=== PATIENT | male | born 2000 | race Caucasian/White ===

== ENCOUNTER 2021-02-14 23:47 | Emergency (ER) | payer MEDICAID, OTHER ==
[~2021-02-14] VITALS: Ht 177.8 cm; Wt 113.3 kg
[2021-02-15] MEDS ORDERED: KETOROLAC 30 MG/ML VIAL ONE (00:27)
[2021-02-15] MEDS ORDERED: LACTATED RINGERS 1,000 ML IV ONE (00:27)
[2021-02-15] MEDS ORDERED: LACTATED RINGERS 1,000 ML IV STA (00:27)
[2021-02-15] MEDS ORDERED: KETOROLAC 30 MG/ML VIAL IVP STA (00:27)
--- NOTE | 2021-02-15 00:36 | ED General ---
General Chief Complaint: Cough/Cold/Flu Symptoms Stated Complaint: SOA/DIARRHEA/CHEST PAIN Source of Information: Patient Exam Limitations: No Limitations History of Present Illness Date Seen by Provider: Feb 15, 2021 Time Seen by Provider: 00:15 Initial Comments Patient checked in wanting her Covid test with results I will and also complains of chest pain, diarrhea, headache and fatigue. He found out that he could not get results for rapid test here as that was not available and held off on completing check-in until he made a phone call. He states he is good to be to work at 5 AM. Ultimately decided to go ahead and finish check in due to the other complaints. States that he was exposed to a person with Covid 19 on , 02/10/2021 at work. He started developing symptoms of fatigue and headache on 02/12/2021 and then tonight has progressed to diarrhea, fatigue, headache, fevers and now left-sided chest pain. The chest pain he states is electrical feeling that has been going on for an hour or 2. States it is worse with air blowing on his face. Otherwise no exacerbating or relieving factors. He has had 1 dose of his Covid vaccine on 01/11/2021 with [employer] dosing. He is here working on the [facility] site and he is from [place]. Has no local physician. Denies loss of taste and smell. Timing/Duration: 2-3 Days Severity: Moderate Associated Systoms: Chest Pain; No Cough; Headaches, Malaise; No Nausea/Vomiting, No Shortness of Air Allergies and Home Medications Allergies Coded Allergies: No Known Drug Allergies (Unverified , 02/15/21) Patient Home Medication List Home Medication List Reviewed: Yes Review of Systems Review of Systems Constitutional: No chills; fever, malaise EENTM: nose congestion; No throat pain Respiratory: No cough, No short of breath Cardiovascular: chest pain; No edema, No palpitations Gastrointestinal: diarrhea; No nausea, No vomiting Genitourinary: no symptoms reported Musculoskeletal: No back pain; muscle pain Skin: no symptoms reported Psychiatric/Neurological: No Symptoms Reported All Other Systems Reviewed Negative Unless Noted: Yes Past [id number] Hx Patient Social History Tobacco Use?: No Substance use?: No Alcohol Use?: No Past Medical History Surgeries: Yes Orthopedic Respiratory: No Cardiac: No Neurological: No Genitourinary: No Gastrointestinal: No Physical Exam Vital Signs Vital Signs - First Documented 02/15/21 00:15 Temp 36.6 Pulse 89 Resp 14 B/P (MAP) 138/64 (88) Pulse Ox 97 O2 Delivery Room Air Capillary Refill : Height, Weight, BMI Height: '" Weight: lbs. oz. kg; BMI Method: General Appearance: No Apparent Distress, WD/WN HEENT: PERRL/EOMI, Pharynx Normal Neck: Non Tender, Supple Respiratory: Lungs Clear, Normal Breath Sounds Cardiovascular: Regular Rate, Rhythm, No Murmur Gastrointestinal: Non Tender, Soft Back: Normal Inspection, No CVA Tenderness, No Vertebral Tenderness Extremity: Normal Range of Motion, Non Tender, No Calf Tenderness, No Pedal Edema Neurologic/Psychiatric: Alert, Oriented x3, Normal Mood/Affect Skin: Normal Color, Warm/Dry Progress/Results/Core Measures Suspected Sepsis SIRS Temperature: Pulse: Respiratory Rate: Laboratory Tests 02/15/21 00:33: White Blood Count 11.1H Blood Pressure / Mean: Laboratory Tests 02/15/21 00:33: Creatinine 0.86, Platelet Count 296, Total Bilirubin 0.7 Results/Orders Lab Results Laboratory Tests Test 02/15/21 00:33 02/15/21 00:50 Range/Units White Blood Count 11.1 H 4.3-11.0 10^3/uL Red Blood Count 5.15 4.30-5.52 10^6/uL Hemoglobin 14.7 13.3-17.7 g/dL Hematocrit 42 40-54 % Mean Corpuscular Volume 82 80-99 fL Mean Corpuscular Hemoglobin 29 25-34 pg Mean Corpuscular Hemoglobin Concent 35 32-36 g/dL Red Cell Distribution Width 12.1 10.0-14.5 % Platelet Count 296 130-400 10^3/uL Mean Platelet Volume 11.0 9.0-12.2 fL Immature Granulocyte % (Auto) 1 % Neutrophils (%) (Auto) 60 42-75 % Lymphocytes (%) (Auto) 29 12-44 % Monocytes (%) (Auto) 6 0-12 % Eosinophils (%) (Auto) 3 0-10 % Basophils (%) (Auto) 0 0-10 % Neutrophils # (Auto) 6.7 1.8-7.8 X 10^3 Lymphocytes # (Auto) 3.3 1.0-4.0 X 10^3 Monocytes # (Auto) 0.7 0.0-1.0 X 10^3 Eosinophils # (Auto) 0.3 0.0-0.3 10^3/uL Basophils # (Auto) 0.0 0.0-0.1 10^3/uL Immature Granulocyte # (Auto) 0.1 0.0-0.1 10^3/uL Sodium Level 140 135-145 MMOL/L Potassium Level 4.2 3.6-5.0 MMOL/L Chloride Level 103 98-107 MMOL/L Carbon Dioxide Level 26 21-32 MMOL/L Anion Gap 11 5-14 MMOL/L Blood Urea Nitrogen 18 7-18 MG/DL Creatinine 0.86 0.60-1.30 MG/DL Estimat Glomerular Filtration Rate 113 BUN/Creatinine Ratio 21 Glucose Level 138 H 70-105 MG/DL Calcium Level 9.6 8.5-10.1 MG/DL Corrected Calcium 9.3 8.5-10.1 MG/DL Total Bilirubin 0.7 0.1-1.0 MG/DL Aspartate Amino Transf (AST/SGOT) 25 5-34 U/L Alanine Aminotransferase (ALT/SGPT) 44 0-55 U/L Alkaline Phosphatase 129 40-136 U/L Troponin I < 0.30 <0.30 NG/ML C-Reactive Protein < 0.30 <0.50 MG/DL Total Protein 7.5 6.4-8.2 GM/DL Albumin 4.4 3.2-4.5 GM/DL D-Dimer 0.35 0.00-0.49 UG/ML My Orders Orders - ROSA ISELA YOUNG MD Lactated Ringers (Lr 1000 Ml Iv Solution (02/15/21 00:27) Ed Iv/Invasive Line Start (02/15/21 00:27) Ketorolac Injection (Toradol Injection) (02/15/21 00:27) Ketorolac Injection (Toradol Injection) (02/15/21 00:27) Lactated Ringers (Lr 1000 Ml Iv Solution (02/15/21 00:27) Ekg Tracing (02/15/21:28) Cbc With Automated Diff (02/15/21:28) Comprehensive Metabolic Panel (9/7/21 00:28) Fibrin Degradation Products (02/15/21 00:28) Crp Fs (02/15/21 00:28) Troponin I Fs (02/15/21 00:28) Chest 1 View Ap/Pa Only (02/15/21 00:28) Covid 19 Inhouse Test (02/15/21 00:28) Influenza A And B By Pcr (02/15/21 00:28) Isolation Central Supply Req (02/15/21 00:28) Vital Signs/I&O 02/15/21 02/15/21 00:15 00:15 Temp 36.6 Pulse 89 Resp 14 B/P (MAP) 138/64 (88) Pulse Ox 97 O2 Delivery Room Air Room Air Capillary Refill : Progress Note : Progress Note Seen and evaluated. Vital signs are normal currently. Given his constellation of symptoms and concerns about chest pain, we will go ahead and initiate IV and give LR 1 L bolus and check labs as well as EKG and chest x-ray. Patient informed that Covid testing would not be resulted until later today. He is okay with that. We will give work note regarding COVID-19 concerns. COVID-19 testing ordered as well as influenza which will both be PCR and both resulted later today. Toradol 30 mg IV ordered. Monitor patient. 0149: Labs reviewed and no acute findings noted. EKG and chest x-ray are normal. Overall doing better now. Covid testing is pending and patient will be called with results. He is okay with this. Discharged home with return precautions. Patient verbalized understanding of instructions and agreement with plan. ECG Initial ECG Impression Date: Feb 15, 2021 Initial ECG Impression Time: 00:42 Initial ECG Rate: 73 Initial ECG Rhythm: Normal Sinus Initial ECG Impression: Normal Initial ECG Comparisson: No Previous ECG Available Comment Sinus rhythm with normal axis. No evidence of ST elevation OK. No previous available for comparison. Interpreted by me. Diagnostic Imaging Diagonstic Imaging: Xray Plain Films/CT/US/NM/MRI: chest Comments No acute findings Reviewed: Reviewed by Me Departure Impression Primary Impression: Person under investigation for COVID-19 Additional Impression: Diarrhea Qualified Codes: R19.7 - Diarrhea, unspecified Disposition: HOME, SELF-CARE Condition: Improved Departure-Patient Inst. Decision time for Depature: 01:50 Referrals: NO,LOCAL PHYSICIAN (PCP/Family) Primary Care Physician Patient Instructions: COVID-19 (DC), Diarrhea in Adolescents and Adults Add. Discharge Instructions: All discharge instructions reviewed with patient and/or family. Voiced understanding. Drink plenty of fluids and get plenty of rest. You will need to remain quarantined until test results are noted. Do not go to work today until you k now the results of your test. If they are negative, you will need remain isolated for 24 hours after symptoms resolve. If they are positive, the health department will call you and direct quarantine/isolation timeframe which is 10 days from onset of symptoms with day 0 being the first day of symptoms. You will need to be fever free for the last 3 days of the isolation and have im proving symptoms to be released from isolation. You may take ibuprofen 600 mg every 8 hours as needed for fever or pain. You may take Tylenol/acetaminophen 1000 mg every 8 hours as needed for fever or pain. If your Covid test is positive, you should monitor your oxygen saturations and return if you are O2 saturation is 90% or less. Return for worse pain, fever, vomiting, weakness, breathing problems or other concerns as needed. ROSA ISELA YOUNG MD Feb 15, 2021 00:36
[2021-02-15 00:50] LABS: HEMATOCRIT 42 % (40-54); HEMOGLOBIN 14.7 g/dL (13.3-17.7); MEAN CORPUSCULAR HEMOGLOBIN 29 pg (25-34); MEAN CORPUSCULAR HGB CONC 35 g/dL (32-36); MEAN CORPUSCULAR VOLUME 82 fL (80-99); PLATELET COUNT 296 10^3/uL (130-400); WHITE BLOOD COUNT 11.1 10^3/uL (4.3-11.0)
[2021-02-15 00:51] LABS: BASOPHILS % (AUTO) 0 % (0-10); EOSINOPHILS # (AUTO) 0.3 10^3/uL (0.0-0.3); EOSINOPHILS % (AUTO) 3 % (0-10); LYMPHOCYTES # (AUTO) 3.3 X 10^3 (1.0-4.0); LYMPHOCYTES % (AUTO) 29 % (12-44); MONOCYTES # (AUTO) 0.7 X 10^3 (0.0-1.0); MONOCYTES % (AUTO) 6 % (0-12); NEUTROPHILS # (AUTO) 6.7 X 10^3 (1.8-7.8); NEUTROPHILS % (AUTO) 60 % (42-75)
[2021-02-15 01:13] LABS: ALANINE AMINOTRANSFERASE 44 U/L (0-55); ALKALINE PHOSPHATASE 129 U/L (40-136); BILIRUBIN,TOTAL 0.7 MG/DL (0.1-1.0); BUN/CREATININE RATIO 21; CALCIUM 9.6 MG/DL (8.5-10.1); CARBON DIOXIDE 26 MMOL/L (21-32); CHLORIDE 103 MMOL/L (98-107); CREATININE SERUM 0.86 MG/DL (0.60-1.30); GFR ESTIMATED 113; GLUCOSE 138 MG/DL (70-105); POTASSIUM 4.2 MMOL/L (3.6-5.0); SODIUM 140 MMOL/L (135-145); TOTAL PROTEIN 7.5 GM/DL (6.4-8.2)
[2021-02-15 01:14] LABS: ALBUMIN 4.4 GM/DL (3.2-4.5)
[2021-02-15 02:06] VITALS: BP 137/75
--- NOTE | 2021-02-15 07:22 | Diagnostic Imaging Report ---
EXAMINATION: Chest radiograph, portable AP view. DATE: 02/15/2021 12:56 AM INDICATION: 20-year-old male, chest pain. COMPARISON: None. FINDINGS: Heart size and mediastinal contours are unremarkable. There is no identified pneumothorax. There is no large pleural effusion. There is no identified focal airspace consolidation. IMPRESSION: No identified acute cardiopulmonary abnormality. Dictated by: Dictated on workstation # [id number]
== END 2021-02-15 01:59 | disposition home or self-care (01) ==
LOC: ER FS 02-15 00:10
DX: R19.7 Diarrhea, unspecified (principal); Z20.822 Contact with and (suspected) exposure to COVID-19
CPT/HCPCS: 36415; 71045; 80053; 84484; 85025; 85379; 86141; 87636; 93005